=== PATIENT | male | born 1935 | race Caucasian/White ===

== ENCOUNTER 2016-12-15 05:06 | Outpatient (CLI) | payer MEDICARE, OTHER | END 2016-12-15 05:07 | disposition critical access hospital (66) | LOC: EMS 05:06 | PROVIDERS: ATTEND Surgery | DX: R53.1 Weakness (principal); R29.810 Facial weakness; W19.XXXA Unspecified fall, initial encounter; Y92.003 Bedroom of unspecified non-institutional (private) residence as the place of occurrence of the external cause | CPT/HCPCS: A0425; A0427 ==

== ENCOUNTER 2016-12-22 16:12 | Outpatient (CLI) | payer MEDICARE, OTHER | END 2016-12-22 16:13 | disposition home or self-care (01) | LOC: EMS 16:12 | PROVIDERS: ATTEND Surgery | DX: Z74.01 Bed confinement status (principal); I63.9 Cerebral infarction, unspecified | CPT/HCPCS: A0425; A0429 ==